=== PATIENT | female | born 1960 | race Caucasian/White ===

== ENCOUNTER 2019-06-30 15:43 | Inpatient (IN) | payer BC, OTHER ==
[~2019-06-30] VITALS: Ht 167.6 cm; Wt 97.5 kg
[~2019-06-30 15:43] MED LIST: AMARYL2 MG PO; BLOOD PRESSURE MED; GLUCOPHAGE500 MG PO; PRAVACHOL10 MG PO
[2019-06-30] MEDS ORDERED: JANUMET 50-1,01 EACH PO (15:59)
[2019-06-30] MEDS ORDERED: MYSOLINE50 MG PO (15:59)
[2019-06-30] MEDS ORDERED: LOSARTAN POTASS25 MG PO (15:59)
[2019-06-30 16:05] LABS: BASOPHILS # (AUTO) 0.1 (0.0-0.1); BASOPHILS % 0.3 % (0.0-1.0); EOSINOPHILS # (AUTO) 0.2 (0.0-0.4); HEMATOCRIT 36.8 % (34.2-44.1); HEMOGLOBIN 12.3 g/dL (12.0-16.0); LYMPHOCYTES # (AUTO) 2.1 (1.0-3.2); LYMPHOCYTES % 11.8 % (18.0-39.1); MEAN CORPUSCULAR HEMOGLOBIN 31.9 pg (28-32); MEAN CORPUSCULAR HGB CONC 33.4 g/dL (31-35); MEAN CORPUSCULAR VOLUME 95.3 fL (81-99); MONOCYTES # (AUTO) 0.9 (0.2-0.8); NEUTROPHILS # (AUTO) 14.7 (2.1-6.9); NEUTROPHILS % 81.5 % (38.7-80.0); PLATELET COUNT 471 x10e3/uL (140-360); RED BLOOD COUNT 3.86 x10e6/uL (3.6-5.1)
[2019-06-30 16:06] LABS: BILIRUBIN,URINE NEGATIVE (NEGATIVE); CLARITY,URINE SL CLOUDY (CLEAR); COLOR,URINE YELLOW (YELLOW); KETONES,URINE NEGATIVE (NEGATIVE); LEUKOCYTE ESTERASE ,URINE NEGATIVE (NEGATIVE); NITRITE,URINE NEGATIVE (NEGATIVE); PROTEIN,URINE DIPSTICK NEGATIVE (NEGATIVE); URINE UROBILINOGEN 0.2 mg/dL (0.2 - 1)
[2019-06-30 16:20] LABS: ALANINE AMINOTRANSFERASE 15 IU/L (0-55); ALBUMIN 3.7 g/dL (3.5-5.0); ALBUMIN/GLOBULIN RATIO 1.2 (0.8-2.0); ALKALINE PHOSPHATASE 105 IU/L (40-150); BLOOD UREA NITROGEN 9 mg/dL (7-26); BUN/CREATININE RATIO 11 (6-25); CARBON DIOXIDE 25 mmol/L (22-29); CHLORIDE 101 mmol/L (98-107); CREATININE, SERUM 0.79 mg/dL (0.57-1.11); EST GLOMERULAR FILTRATION RATE > 60 ML/MIN (60-); GLUCOSE 187 mg/dL (74-118); SODIUM 137 mmol/L (136-145)
[2019-06-30 16:21] LABS: AMORPHOUS SEDIMENT,URINE FEW (FEW); BACTERIA,URINE FEW /HPF; EPITHELIAL CELLS,URINE MODERATE /LPF
[2019-06-30 16:22] LABS: AMYLASE 40 U/L (25-125); LIPASE 68 U/L (8-78)
[2019-06-30] MEDS ORDERED: CEFTRIAXONE SOD 1 GM/NS 50 ML 50 ML IV SCH (16:45)
[2019-06-30 17:02] LABS: CREATINE KINASE MB 0.7 ng/mL (0-5.0)
--- NOTE | 2019-06-30 17:21 | Diagnostic Imaging Report ---
EXAM: CT Abdomen and Pelvis WITHOUT intravenous contrast INDICATION: Epigastric pain COMPARISON: None. TECHNIQUE: Abdomen and pelvis were scanned utilizing a multidetector helical scanner from the lung base to the pubic symphysis without administration of IV contrast. Coronal and sagittal reformations were obtained. IV CONTRAST: None ORAL CONTRAST: Water COMPLICATIONS: None RADIATION DOSE: Total DLP: 629.7 mGy*cm Dose modulation, iterative reconstruction, and/or weight based adjustment of the mA/kV was utilized to reduce the radiation dose to as low as reasonably achievable. FINDINGS: LOWER THORAX: Normal. HEPATOBILIARY: Mild diffuse hepatic steatosis. No focal liver lesions. Unremarkable gallbladder. SPLEEN: No splenomegaly. PANCREAS: Mild fat stranding adjacent to the pancreatic head with associated prominent lymph nodes not meeting size criteria for lymphadenopathy. No associated fluid collection. ADRENALS: No adrenal nodules. KIDNEYS/URETERS: No hydronephrosis, stones, or solid mass lesions. PELVIC ORGANS/BLADDER: Unremarkable. PERITONEUM / RETROPERITONEUM: No free air or fluid. LYMPH NODES: No lymphadenopathy. VESSELS: Scattered atherosclerotic calcifications of the nonaneurysmal abdominal aorta and major branches. GI TRACT: No abnormal bowel wall thickening. No bowel obstruction. Normal appendix. BONES AND SOFT TISSUES: No acute osseous injury. No suspicious lytic or blastic lesions. IMPRESSION: Findings concerning for acute pancreatitis. Mild diffuse hepatic steatosis. Signed by: Maddie Eckert MD on 06/30/2019 5:17 PM
[2019-06-30] MEDS ORDERED: SODIUM CHLORIDE 0.9% 1000ML 1,000 ML IV STA (17:51)
[2019-06-30] MEDS ORDERED: FAMOTIDINE 20 MG/2 ML VIAL IV ONE (18:30)
[2019-06-30] MEDS: SODIUM CHLORIDE 0.9% 1000ML 1,000 ML IV SCH (19:10)
[2019-06-30] MEDS: MORPHINE SULFATE 2 MG/ML SYR 1ML IV PRN (19:15)
[2019-06-30] MEDS: ONDANSETRON HCL INJ 2MG/ML 2ML 2 MG/ML VIAL IV PRN (19:15)
--- OUTSIDE RECORDS SUMMARY | 2019-06-30 19:45 | XMS REPORT ---
Author [facility] Address Unknown Phone Unavailable Care Team Providers Care Iron Setter Name Role Phone DAYRON GONZALES Unavailable Unavailable Problems This patient has no known problems. Allergies, Adverse Reactions, Alerts This patient has no known allergies or adverse reactions. Medications This patient has no known medications. Results Test Description Test Time Test Comments Text Results Atomic Results Result Comments CT ABDOMEN/PELVIS WO 2019-06-30 17:11:00 [place] [address] Patient Name: DINESH URIZ MR #: [id number] : 1960 Age/Sex: 58/F Req #: [id number] Adm Physician: Ordered by: DAYRON GONZALES MD Report #: [id number] Location: ER Room/Bed: Procedure: [id number] CT/CT ABDOMEN/PELVIS WO Exam Date: 06/30/19 Exam Time: 1615 REPORT STATUS: Signed EXAM: CT Abdomen and Pelvis WITHOUT intravenous cont rast INDICATION: Epigastric pain COMPARISON: None. TECHNIQUE: Abdomen and pelvis were scanned utilizing a multidetector helical scanner from the lung base to the pubic symphysis without administration of IV contrast. Coronal and sagittal reformations were obtained. IV CONTRAST: None ORAL CONTRAST: Water COMPLICATIONS: None RADIATION DOSE: Total DLP: 629.7 mGy*cm Dose modulation, iterative reconstruction, and/or weight based adjustment of the mA/kV was utilized to reduce the radiation dose to as low as reasonably achievable. FINDINGS: LOWER THORAX: Normal. HEPATOBILIARY: Mild diffuse hepatic steatosis. No focal liver lesions. Unremarkable gallbladder. SPLEEN: No splenomegaly. PANCREAS: Mild fat stranding adjacent to the pancreatic head with associated prominent lymph nodes not meeting size criteria for lymphadenopathy. No associated fluid collection. ADRENALS: No adrenal nodules. KIDNEYS/URETERS: No hydronephrosis, stones, or solid mass lesions. PELVIC ORGANS/BLADDER: Unremarkable. PERITONEUM / RETROPERITONEUM: No free air or fluid. LYMPH NODES: No lymphadenopathy. VESSELS: Scattered atherosclerotic calcifications of the nonaneurysmal abdominal aorta and major branches. GI TRACT: No abnormal bowel wall thickening. No bowel obstruction. Normal appendix. BONES AND SOFT TISSUES: No acute osseous injury. No suspicious lytic or blastic lesions. IMPRESSION: Findings concerning for acute pancreatitis. Mild diffuse hepatic steatosis. Signed by: Marian Eckert MD on 06/30/2019 5:17 PM Dictated By: MARIAN ECKERT MD 16 Transcribed By: KATELYNN on 06/30/191716 COPY TO: DAYRON GONZALES MD
[2019-06-30] MEDS ORDERED: FUROSEMIDE INJ 10 MG/ML 4 ML VIAL IV SCH (21:00)
[2019-07-01] MEDS: SODIUM CHLORIDE 0.9% 1000ML 1,000 ML IV SCH ×4 (02:24→18:32)
[2019-07-01 05:51] LABS: BASOPHILS # (AUTO) 0.1 (0.0-0.1); BASOPHILS % 0.4 % (0.0-1.0); EOSINOPHILS # (AUTO) 0.2 (0.0-0.4); HEMATOCRIT 33.4 % (34.2-44.1); HEMOGLOBIN 11.1 g/dL (12.0-16.0); LYMPHOCYTES # (AUTO) 2.5 (1.0-3.2); LYMPHOCYTES % 15.9 % (18.0-39.1); MEAN CORPUSCULAR HEMOGLOBIN 31.8 pg (28-32); MEAN CORPUSCULAR HGB CONC 33.2 g/dL (31-35); MEAN CORPUSCULAR VOLUME 95.7 fL (81-99); MONOCYTES % 6.2 % (4.4-11.3); NEUTROPHILS # (AUTO) 11.7 (2.1-6.9); NEUTROPHILS % 76.1 % (38.7-80.0); PLATELET COUNT 383 x10e3/uL (140-360); RED BLOOD COUNT 3.49 x10e6/uL (3.6-5.1)
[2019-07-01 06:09] LABS: ALANINE AMINOTRANSFERASE 10 IU/L (0-55); ALBUMIN 3.1 g/dL (3.5-5.0); ALBUMIN/GLOBULIN RATIO 1.1 (0.8-2.0); ALKALINE PHOSPHATASE 91 IU/L (40-150); ANION GAP 13.1 mmol/L (8-16); BLOOD UREA NITROGEN 6 mg/dL (7-26); BUN/CREATININE RATIO 8 (6-25); CALCIUM 8.9 mg/dL (8.4-10.2); CARBON DIOXIDE 26 mmol/L (22-29); CHLORIDE 103 mmol/L (98-107); CHOL/HDL RATIO 3.4 (3.0-3.6); CHOLESTEROL 111 MD/DL (0-199); CREATININE, SERUM 0.76 mg/dL (0.57-1.11); EST GLOMERULAR FILTRATION RATE > 60 ML/MIN (60-); GLUCOSE 188 mg/dL (74-118); HDL CHOLESTEROL 33 MG/DL (40-60); LDL CHOLESTEROL 57 MG/DL (60-130); POTASSIUM 4.1 mmol/L (3.5-5.1); SODIUM 138 mmol/L (136-145); TRIGLYCERIDES 105 MG/DL (0-149)
--- NOTE | 2019-07-01 07:18 | NUR ---
RECEIVED REPORT FROM PAYTON BOWENS.
--- NOTE | 2019-07-01 07:26 | NUR ---
PT ASSISTED TO HALLWAY RESTROOM WITHOUT DIFFICULTY AND BACK TO STRETCHER, NAD NOTED, NO NEEDS VOICED AT THIS TIME, WILL CONTINUE TO MONITOR.
--- NOTE | 2019-07-01 08:47 | NUR ---
DR. PRESSLEY AT BEDSIDE FOR PT EVAL AT THIS TIME.
--- NOTE | 2019-07-01 09:05 | NUR ---
PT PROVIDED WITH WAFFLE PRESSURE PREVENTION MATRESS, INFORMED ON BENEFITS OF USE, PT CURRENTLY TOLERATING WELL AT THIS TIME, BED LOW/LOCKED, SIDE RAILS UP, WILL CONTINUE TO MONITOR.
[2019-07-01] MEDS: FAMOTIDINE 20 MG/2 ML VIAL IV SCH ×2 (09:20→19:47)
[2019-07-01] MEDS: ONDANSETRON HCL INJ 2MG/ML 2ML 2 MG/ML VIAL IV PRN ×2 (11:12→19:47)
[2019-07-01] MEDS: MORPHINE SULFATE 2 MG/ML SYR 1ML IV PRN ×2 (11:14→19:47)
--- NOTE | 2019-07-01 15:35 | NUR ---
RECEIVED PT FROM ER. FAMILY AT BEDSIDE. PT AAOX4. EDUCATED ABOUT FALL PRECAUTIONS. CALL LIGHT WITH IN EASY REACH. BED IS LOCKED AND LOWEST POSITION. PT REFUSED BED ALARM. DR. PRESSLEY SAW THE PT AT ER AND DR. PHILIPPE CONSULT CALLED PER THE ER NURSE. PT DENIES NEEDS AT THIS TIME.
[2019-07-01 16:00] VITALS: BP 144/71
[2019-07-01 16:21] VITALS: BP_SYST 144; BP_SYST 146; BP_DIAS 71
--- NOTE | 2019-07-01 18:30 | NUR ---
PAGED DR. PHILIPPE REGARDING THE CONSULT.
--- NOTE | 2019-07-01 19:00 | NUR ---
BEDSIDE SHIFT REPORT GIVEN TO THE CORPORATE MANAGER RN. PT DENIED FURTHER NEEDS.
[2019-07-01 20:00] VITALS: BP 124/55
--- NOTE | 2019-07-01 22:38 | NUR ---
Dr. Merrill here for rounding. Orders received.
[2019-07-01 23:21] VITALS: BP 112/58
[2019-07-02] VITALS (8 sets, daily range): BP systolic 144–171; BP diastolic 65–94
[2019-07-02] MEDS: SODIUM CHLORIDE 0.9% 1000ML 1,000 ML IV SCH ×2 (04:35→18:26)
--- NOTE | 2019-07-02 05:01 | Consultation ---
DATE OF CONSULTATION: 07/01/2019 GI Consult Note REFERRING PHYSICIAN: Dr. Manish Parish. REASON FOR CONSULT: Acute idiopathic pancreatitis. HISTORY OF PRESENTING ILLNESS: A 58-year-old very pleasant white female, who got admitted with 1-2 days history of acute onset of mid epigastric pain radiating into the upper back. Arrived in the emergency room yesterday. She was noted to be hemodynamically stable. CT of the abdomen without IV contrast showed a peripancreatic inflammation concerning for pancreatitis. The patient's gallbladder was normal, no gallstones. Liver enzymes normal. Amylase and lipase level were also noted normal. The patient was started on IV fluids, kept n.p.o. She received pain medication on as needed basis. REVIEW OF SYSTEMS: Twelve point system reviewed, symptomatology is limited to GI system. PAST MEDICAL HISTORY: Diabetes, hypertension, hyperlipidemia. PAST SURGICAL HISTORY: Noncontributory. SOCIAL HISTORY: No smoking, alcohol, or any illicit drug use. FAMILY HISTORY: Noncontributory. ALLERGIES: CODEINE. HOME MEDICATIONS: Glimepiride, losartan, pravastatin, primidone, and sitagliptin. Inpatient medication list reviewed as per DEC. PHYSICAL EXAMINATION: VITAL SIGNS: Temperature 98.4, pulse 72, respirations 18, blood pressure 146/71, oxygen saturation 96% on room air. GENERAL: Not in any acute distress, obese body habitus. HEENT: Oral mucosa is moist. Anicteric sclerae. CVS: S1, S2. Regular. LUNGS: Bilaterally grossly clear. ABDOMEN: Obese, nondistended. Mild palpable epigastric tenderness. No rebound, rigidity, or guarding. Landaverde sign is negative. Bowel sounds present. EXTREMITIES: Warm. No leg edema. LABORATORY DATA: Sodium 138, potassium 4.1, chloride 103, bicarb 26, BUN 6, creatinine 0.76. Liver enzymes normal. Amylase 40, lipase 68. WBC has gone down to 15.38 from 18.02, hemoglobin 11.1, hematocrit 33.4, and platelet count 383. Urinalysis negative. CT of the abdomen and pelvis without contrast showed findings concerning for acute pancreatitis. IMPRESSION: Acute idiopathic pancreatitis without any rise in amylase or lipase level. CT scan showing fat stranding around the pancreas suggestive of pancreatitis. The patient's clinical presentation also fits into pancreatitis. PLAN: I agree to treat on the line of pancreatitis, IV fluids, n.p.o. Once the patient starts feeling hungry, then give clear liquid and advance diet as tolerated. I have given the patient my business card. The patient needs to follow up with me in my office within one week upon discharge. Fred Merrill MD SA/BRENDA /[id number]
[2019-07-02] MEDS: FAMOTIDINE 20 MG/2 ML VIAL IV SCH ×2 (09:00→21:27)
[2019-07-02] MEDS: LOSARTAN POTASSIUM 25 MG TAB PO SCH (12:52)
[2019-07-02] MEDS: MORPHINE SULFATE 2 MG/ML SYR 1ML IV PRN (18:33)
--- NOTE | 2019-07-02 19:00 | NUR ---
RECEIVED PATIENT IN BEDSIDE REPORT. PATIENT RESTING IN BED, STATES PAIN IS 1/10. NO S&S OF DISTRESS NOTED. BED LOCKED IN LOWEST POSITION, SIDE RAILS UPX2, CALL LIGHT IN REACH.
--- NOTE | 2019-07-02 19:10 | NUR ---
Report given to oncoming nurse of patient's status. Resting in bed. No s/s of acute distress noted. Side rails upx2, call light within reach.
[2019-07-02] MEDS ORDERED: PRIMIDONE 50 MG TAB PO SCH (21:00)
--- NOTE | 2019-07-02 21:11 | Progress Note ---
DATE: 07/02/2019 SUBJECTIVE: The patient reports no abdominal pain. She tolerated clear liquid diet. She has not had any bowel movement. REVIEW OF SYSTEMS: GENERAL: No fever or chills. CVS: No chest pain or palpitation. RESPIRATORY: No cough or expectoration. MEDICATIONS: Reviewed as per DEC. PHYSICAL EXAMINATION: VITAL SIGNS: Temperature 97.8, pulse 73, respirations 18, blood pressure 144/74, and oxygen saturation 95% on room air. GENERAL: Not in any acute distress. HEENT: Oral mucosa is moist. Anicteric sclerae. ABDOMEN: Soft, obese, and nondistended. Epigastric tenderness has resolved. No rebound, rigidity, or guarding. Positive bowel sounds. LABORATORY DATA: WBC 15.38, down from 18.08; hemoglobin 11.1, hematocrit 33.4, MCV 95.7, and platelet count 383. The last electrolytes done yesterday showed a sodium of 138, potassium 4.1, chloride 103, bicarb 26, BUN 6, and creatinine 0.76. Liver enzymes normal. IMPRESSION: Acute idiopathic pancreatitis, which seems to have resolved. PLAN: Discontinue IV fluid, advance diet as tolerated. Minimize the use of analgesics. Bowel regimen for constipation. Fred Merrill MD SA/BRENDA /[id number]
[2019-07-03 00:21] VITALS: BP 156/73
[2019-07-03 05:27] LABS: BASOPHILS # (AUTO) 0.1 (0.0-0.1); BASOPHILS % 0.5 % (0.0-1.0); EOSINOPHILS # (AUTO) 0.4 (0.0-0.4); EOSINOPHILS % 3.3 % (0.0-6.0); HEMATOCRIT 30.3 % (34.2-44.1); HEMOGLOBIN 9.9 g/dL (12.0-16.0); LYMPHOCYTES # (AUTO) 2.3 (1.0-3.2); LYMPHOCYTES % 18.7 % (18.0-39.1); MEAN CORPUSCULAR HEMOGLOBIN 31.6 pg (28-32); MEAN CORPUSCULAR HGB CONC 32.7 g/dL (31-35); MEAN CORPUSCULAR VOLUME 96.8 fL (81-99); MONOCYTES # (AUTO) 0.9 (0.2-0.8); MONOCYTES % 7.1 % (4.4-11.3); NEUTROPHILS # (AUTO) 8.6 (2.1-6.9); NEUTROPHILS % 69.8 % (38.7-80.0); PLATELET COUNT 345 x10e3/uL (140-360); RED BLOOD COUNT 3.13 x10e6/uL (3.6-5.1); RED CELL DISTRIBUTION WIDTH 12.9 % (11.7-14.4)
[2019-07-03 05:48] LABS: ANION GAP 12.1 mmol/L (8-16); BLOOD UREA NITROGEN 6 mg/dL (7-26); BUN/CREATININE RATIO 8 (6-25); CALCIUM 9.2 mg/dL (8.4-10.2); CARBON DIOXIDE 25 mmol/L (22-29); CHLORIDE 108 mmol/L (98-107); CREATININE, SERUM 0.72 mg/dL (0.57-1.11); EST GLOMERULAR FILTRATION RATE > 60 ML/MIN (60-); GLUCOSE 212 mg/dL (74-118); POTASSIUM 4.1 mmol/L (3.5-5.1); SODIUM 141 mmol/L (136-145)
[2019-07-03 06:27] VITALS: BP 176/76
[2019-07-03 07:56] VITALS: BP 171/75
[2019-07-03] MEDS: LOSARTAN POTASSIUM 25 MG TAB PO SCH (08:52)
[2019-07-03] MEDS: FAMOTIDINE 20 MG/2 ML VIAL IV SCH (08:52)
[2019-07-03] MEDS ORDERED: METFORMIN HCL500 M2 PO (09:03)
[2019-07-03 09:48] VITALS: BP 171/75
--- NOTE | 2019-07-03 09:55 | NUR ---
Discharge instructions and prescription given to the patient. IV to the right ac was removed with tip intact.
--- NOTE | 2019-07-03 21:05 | Discharge Summary ---
DISCHARGE DIAGNOSES: 1. Pancreatitis, resolved. 2. Type 2 diabetes mellitus, acceptably controlled. 3. Hypertension, controlled. HOSPITAL COURSE: Ms. Chase is a 58-year-old lady, who has past medical history significant for hypertension, type 2 diabetes mellitus, and tremors. She denies any prior medical history of cholelithiasis or abdominal pain and presented to the emergency department with a 48-hour history of diffuse epigastric pain that gradually became worse. She also had nausea, anorexia, and came to the emergency department for evaluation. She was found to have CT findings of pancreatitis. She was admitted to the hospital. She was treated with n.p.o. status, IV fluids, pain medication, and a consultation was requested with the Gastroenterology. CT scan of the abdomen was negative for any significant gallbladder pathology. There was only mild stranding of the pancreatic head and there were no significant elevation of the amylase or lipase in the lab work. She had normal triglyceride levels and review of medications reveals that the patient was on sitagliptin, which has been linked to episodes of pancreatitis. She was treated and remained in the hospital for 72 hours. She quickly improved with resolution of her pain and increased tolerability of the diet. She is being discharged home in stable condition. She has been asked to stop taking the Janumet combination and use only metformin and glimepiride. She is to follow up with vp ad products and planning and follow up in my office in 2 week' time. MD PARRISH Becerra/BRENDA /[id number]
== END 2019-07-03 10:24 | disposition home or self-care (01) | DRG 440 ==
LOC: ER 15:43 → ERHOLD 18:18 → MED/SURG2 07-01 15:32
PROVIDERS: ADMIT Internal Medicine; ATTEND Internal Medicine
DX: K85.00 Idiopathic acute pancreatitis without necrosis or infection (principal); I10 Essential (primary) hypertension; E11.9 Type 2 diabetes mellitus without complications; R25.1 Tremor, unspecified
CPT/HCPCS: 36415; 74176; 80048; 80053; 80061; 81001; 82150; 82550; 82553; 82948; 83690; 84484; 85025; 99284; J2270; J2405; J7030